=== PATIENT | female | born 1985 | race Caucasian/White ===

== ENCOUNTER 2024-08-13 06:08 | Observation (INO) | payer OTHER ==
[2024-08-06 11:32] VITALS: BMI 56.7
[2024-08-13] MEDS ORDERED: EPINEPHrine 1 MG/ML VIAL ONE (06:38)
[2024-08-13] MEDS ORDERED: Bupivacaine 0.25% HCL 30 ML VIAL ONE (06:38)
[2024-08-13] MEDS ORDERED: Scopolamine 1 mg/72 hour Patch ONE (06:50)
[2024-08-13] MEDS ORDERED: cefOXitin 2 GM VIAL ONE (06:50)
[2024-08-13] MEDS ORDERED: Lidocaine 1% MPF 2 ML VIAL ONE (06:50)
[2024-08-13] MEDS ORDERED: Enoxaparin 40 MG (0.4 mL) SYRINGE ONE (06:50)
[2024-08-13] MEDS ORDERED: fentaNYL PF 100 MCG/2 ML SYRINGE ONE ×2 (06:57→09:39)
[2024-08-13] MEDS ORDERED: PROPOFOL 20 ML ONE (06:57)
[2024-08-13] MEDS ORDERED: Lidocaine 1% PF 5 ML VIAL ONE (06:57)
[2024-08-13] MEDS ORDERED: Rocuronium Bromide 10 MG/ML (10ML VIAL) ONE (06:57)
[2024-08-13] MEDS ORDERED: Ipratropium/Albuterol 3 ML NEB NEB PRN (07:18)
[2024-08-13] MEDS ORDERED: Glucagon 1 MG/ML KIT IM PRN (07:18)
[2024-08-13] MEDS ORDERED: Promethazine HCl 25 MG/ML VIAL IM PRN ×2 (07:18→09:22)
[2024-08-13] MEDS ORDERED: Dextrose 50% Abboject 50 ML SYRINGE SLOW IVP PRN (07:18)
[2024-08-13] MEDS ORDERED: Dextrose 5% in Water 1,000 ML IV PRN (07:18)
[2024-08-13] MEDS ORDERED: oxyCODONE 5 MG TAB PO PRN (07:18)
[2024-08-13] MEDS ORDERED: diphenhydrAMINE 50 MG/ML VIAL IVP PRN (07:18)
[2024-08-13] MEDS ORDERED: hydrALAZINE 20 MG/ML VIAL SLOW IVP PRN (07:18)
[2024-08-13] MEDS ORDERED: Ondansetron PF 4 MG/2 ML Vial IVP PRN (07:18)
[2024-08-13] MEDS ORDERED: ETONOGESTREL 68 MG SC SCH (07:45)
[2024-08-13] MEDS ORDERED: Dexamethasone 20 MG/5 ML VIAL ONE (07:55)
[2024-08-13] MEDS ORDERED: Esmolol 100 MG/10 ML VIAL ONE (08:01)
[2024-08-13] MEDS ORDERED: SUGAMMADEX SODIUM 200 MG/2 ML VIAL ONE (08:53)
[2024-08-13] MEDS ORDERED: Ondansetron PF 4 MG/2 ML Vial ONE ×2 (08:53→10:03)
[2024-08-13] MEDS ORDERED: fentaNYL 50 mcg/mL 1 mL Vial ONE (09:01)
[2024-08-13] MEDS ORDERED: Ondansetron HCl/PF 4 MG/2 ML Vial IVP PRN (09:22)
[2024-08-13] MEDS ORDERED: HYDROmorphone 2 MG/ML VIAL SLOW IVP PRN (09:22)
[2024-08-13] MEDS ORDERED: Ketorolac Tromethamine 30 MG (1 mL) VIAL ONE (10:15)
[2024-08-13] MEDS ORDERED: Promethazine HCl 25 MG/ML VIAL ONE (10:34)
[2024-08-13] MEDS ORDERED: HYDROmorphone 0.5 MG/0.5 ML SYRINGE ONE (11:53)
[2024-08-13] MEDS ORDERED: D5 1/2 NS w/20 mEq KCL 1,000 ML ONE (12:04)
[2024-08-13] MEDS: D5 1/2 NS w/20 mEq KCL 1,000 ML IV SCH (12:53)
[2024-08-13] MEDS: Cyclobenzaprine 10 MG TAB PO SCH (12:53)
[2024-08-13] MEDS: Pantoprazole 40 MG VIAL IVP SCH (12:54)
[2024-08-13] MEDS: Ketorolac Tromethamine 30 MG (1 mL) VIAL IVP SCH (13:44)
[2024-08-13] MEDS: Acetaminophen 650 MG/20.3 ML UDCUP PO SCH (14:56)
[2024-08-13] MEDS: traMADol HCl 50 MG TAB PO PRN (18:34)
[2024-08-14] MEDS: Enoxaparin 40 MG (0.4 mL) SYRINGE SC SCH (05:40)
[2024-08-14] MEDS: FLU (Fluarix Triv) TS24-25(6MOS UP)/PF 45 MCG/0.5 ML Syringe IM ONE (09:15)
[2024-08-14] MEDS: Pantoprazole DR 40 MG TAB PO SCH (09:20)
[2024-08-14 12:32] VITALS: BP 133/93; TEMP 98.1
[2024-08-15] MEDS ORDERED: Enoxaparin 40 MG (0.4 mL) SYRINGE SC SCH (09:00)
== END 2024-08-14 12:44 | disposition home or self-care (01) ==
LOC: SDC 06:08 → EDSTATUS 11:00 → SURG B 13:39
PROVIDERS: ADMIT Surgery; ATTEND Surgery
PROC: 0DB64ZZ Excision of Stomach, Percutaneous Endoscopic Approach (ICD-10-PCS; principal; 2024-08-13)
DX: E66.01 Morbid (severe) obesity due to excess calories (principal); I10 Essential (primary) hypertension; K21.9 Gastro-esophageal reflux disease without esophagitis; K76.0 Fatty (change of) liver, not elsewhere classified; G43.909 Migraine, unspecified, not intractable, without status migrainosus; F41.9 Anxiety disorder, unspecified; F32.A Depression, unspecified; Z68.43 Body mass index [BMI] 50.0-59.9, adult; Z91.018 Allergy to other foods; Z79.899 Other long term (current) drug therapy
CPT/HCPCS: 36416; 88307; 93005; 93010; 94760; J0171; J0665; J0694; J1100; J1650; J1885; J2405; J2550; J2704; J3010; J3480; S2900